=== PATIENT | male | born 1990 | race Caucasian/White ===

== ENCOUNTER 2018-08-02 17:12 | Emergency (ER) | payer OTHER ==
[2018-08-02 17:26] VITALS: BMI 31.3
[2018-08-02 17:52] VITALS: BP 129/80; PULSE 93; TEMP 99
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
[2018-08-02] MEDS ORDERED: ACETAMINOPHEN 325 MG TABLET (FP) PO ONE (18:58)
[2018-08-02] MEDS ORDERED: ACETAMINOPHEN 325 MG TABLET (FP) ONE (19:00)
== END 2018-08-02 19:39 | disposition home or self-care (01) ==
LOC: FER 17:12
CPT/HCPCS: 70450-TC; 70490-TC; 99282-25

== ENCOUNTER 2021-08-26 18:52 | Emergency (ER) | payer OTHER ==
[2021-08-26 18:58] VITALS: BP 112/63; PULSE 100; TEMP 98; BMI 28.1
[2021-08-26] MEDS ORDERED: IBUPROFEN 600 MG TABLET (FP) PO ONE ×2 (19:43→19:49)
[2021-08-26] MEDS ORDERED: DIPHTH,PERTUSS(ACELL),TET 0.5 ML DISP.SYRIN IM ONE ×2 (19:43→19:49)
== END 2021-08-26 20:14 | disposition home or self-care (01) ==
LOC: JERFT 18:52
PROC: 3E0234Z Introduction of Serum, Toxoid and Vaccine into Muscle, Percutaneous Approach (ICD-10-PCS; principal; 2021-08-26)
DX: S60.511A Abrasion of right hand, initial encounter (principal); W55.03XA Scratched by cat, initial encounter
CPT/HCPCS: 73130-TC-RT-FY; 90471; 90715; 99284-25